=== PATIENT | female | born 1950 | race Caucasian/White ===

== ENCOUNTER 2016-08-15 18:27 | Emergency (ER) | payer OTHER ==
[~2016-08-15] VITALS: Ht 157.5 cm; Wt 67.0 kg
[2016-08-15 18:58] VITALS: Ht 157.5 cm; Wt 67.0 kg
[2016-08-15] MEDS ORDERED: ONDANSETRON 4 MG INJ IV STA (20:58)
[2016-08-15] MEDS ORDERED: morphine 4 MG/ML VIAL IV STA (20:58)
[2016-08-15] MEDS ORDERED: SOD CHLORIDE 0.9% 1,000 ML IV STA (20:58)
[2016-08-15 20:59] LABS: URINE BLOOD (Dip) POC 2+ (NEGATIVE)
[2016-08-15] MEDS ORDERED: SIMV20TA PO (21:14)
[2016-08-15 21:19] LABS: ADD SCAN DIFF NO
[2016-08-15 21:21] LABS: EOSINOPHILS % 0.3 % (0.0-7.0); HEMATOCRIT 41.6 % (37.0-47.0); HEMOGLOBIN 14.4 g/dl (12.0-16.0); LYMPHOCYTES # 1.6 10^3/ul (0.8-2.9); LYMPHOCYTES % 24.8 % (15.0-51.0); MEAN CORPUSCULAR HEMOGLOBIN 30.8 pg (29.0-33.0); MEAN CORPUSCULAR HGB CONC 34.6 g/dl (32.0-37.0); MEAN CORPUSCULAR VOLUME 89.1 fl (82.0-101.0); MEAN PLATELET VOLUME 9.2 fl (7.4-10.4); MONOCYTE # 0.6 10^3/ul (0.3-0.9); MONOCYTES % 9.6 % (0.0-11.0); NEUTROPHIL # 4.2 10^3/ul (1.6-7.5); NEUTROPHILS % 65.1 % (39.0-77.0); PLATELET COUNT 246 10^3/UL (140-415); RED BLOOD COUNT 4.67 10^6/ul (4.20-5.40); RED CELL DISTRIBUTION WIDTH 12.5 % (11.5-14.5); WHITE BLOOD COUNT 6.4 10^3/ul (4.8-10.8)
[2016-08-15 21:48] LABS: ADD UMIC YES; UR BILIRUBIN (Dip) NEGATIVE (NEGATIVE); UR BLOOD (Dip) 2+ (NEGATIVE); UR CLARITY CLEAR (CLEAR); UR COLOR LT. YELLOW (YELLOW); UR GLUCOSE (Dip) NEGATIVE (NEGATIVE); UR KETONES (Dip) NEGATIVE (NEGATIVE); UR LEUKOCYTE ESTERASE (Dip) NEGATIVE (NEGATIVE); UR NITRITE (Dip) NEGATIVE (NEGATIVE); UR TOTAL PROTEIN (Dip) NEGATIVE (NEGATIVE); UR UROBILINOGEN (Dip) 0.2 E.U./dL (0.1-1.0)
[2016-08-15 21:55] LABS: UR SQUAMOUS EPITHELIAL CELL FEW /HPF (FEW); URINE RBCS 0-2 /HPF (0)
[2016-08-15 22:13] LABS: ALANINE AMINOTRANSFERASE 31 IU/L (13-69); ALBUMIN/GLOBULIN RATIO 1.51; ALKALINE PHOSPHATASE 107 IU/L (42-121); ANION GAP 15 (8-16); ASPARTATE AMINO TRANSFERASE 26 IU/L (15-46); BILIRUBIN,INDIRECT 0.4 mg/dl (0-1.1); BILIRUBIN,TOTAL 0.4 mg/dl (0.2-1.3); BLOOD UREA NITROGEN 10 mg/dl (7-20); CALCIUM 9.8 mg/dl (8.4-10.2); CARBON DIOXIDE 25 mmol/L (21-31); CHLORIDE 102 mmol/L (97-110); CREATININE 0.69 mg/dl (0.44-1.00); GLUCOSE 98 mg/dl (70-220); POTASSIUM 3.6 mmol/L (3.5-5.1); SODIUM 138 mmol/L (135-144); TOTAL PROTEIN 8.3 g/dl (6.1-8.1)
--- NOTE | 2016-08-15 22:27 | RADRPT ---
PROCEDURE: Ultrasound of the abdomen. CLINICAL INDICATION: Abdominal pain TECHNIQUE: Sonographic images of the abdomen were performed. COMPARISON: No pertinent prior examinations were submitted for comparison. FINDINGS: Liver: The liver is diffusely increased in echogenicity and mildly enlarged, measuring approximatel y 16.6 cm. The hepatic veins and portal veins are patent with appropriate directional flow. No intra hepatic ductal dilatation is seen. Gallbladder: Not visualized. The common duct measures 4.0 mm. Pancreas: There is limited evaluation of the pancreatic body and tail. The visualized portions of the pancreas are unremarkable. Kidneys: The right kidney measures 11.8 x 4.6 x 6 cm. There is normal corticomedullary differentiat ion. There is no evidence of renal calculus or hydronephrosis. IVC: The visualized portion of the inferior vena cava is unremarkable. Aorta: Normal in size. Free fluid: None. IMPRESSION: Hepatic steatosis. Gallbladder not visualized. RPTAT: HIKT .Go Tanner MD, Date Time Electronically viewed and signed by .Go Tanner MD, on 08/15/2016 22:27 .T/
--- NOTE | 2016-08-15 22:29 | RADRPT ---
PROCEDURE: CT abdomen and pelvis without intravenous contrast. CLINICAL INDICATION: Pain. TECHNIQUE: CT of the abdomen/pelvis was performed utilizing axial images with reconstructions in s agittal and coronal planes. The administered radiation dose is CTDI 11.6 mGy, DLP 634 mGy-cm. COMPARISON: No pertinent prior examinations were submitted for comparison. FINDINGS: Visualized Chest: There is mild to moderate cardiomegaly. Abdomen: The spleen, pancreas, and adrenal glands are unremarkable. Prior cholecystectomy is noted. There is a 17 mm hypoattenuating lesion within the central right hepatic lobe, likely a cyst. The kidneys are without hydronephrosis. No definite urinary calculi are seen. There is no evidence of bowel obstruction. The appendix is normal. No intra-abdominal free air is seen. Numerous diverticula are noted throughout the colon. There is no evidence of intra-abdominal adenopathy or free fluid. Pelvis: There is no evidence of pelvic adenopathy. The uterus and ovaries are without enlargement. The uri nary bladder is unremarkable. There is no pelvic free fluid. There is a small, fat-containing right inguinal hernia. Osseous structures: Unremarkable. IMPRESSION: No acute findings. Probable hepatic cyst. Colonic diverticulosis. Small, fat-containing right inguinal hernia. RPTAT: HIKT .Go Tanner MD, MD Date Time Electronically viewed and signed by .Go Tanner MD, MD on 08/15/2016 22:29 .T/
[2016-08-15] MEDS ORDERED: ONDA4TAB14 PO (22:36)
[2016-08-15] MEDS ORDERED: HYDR-902 PO (22:36)
[2016-08-15 22:40] LABS: TROPONIN-I < 0.012 ng/ml (0.00-0.12)
--- NOTE | 2016-08-15 22:49 | ERD ---
ER Documentation Chief Complaint Date/Time DATE: 08/15/16 TIME: 22:47 Chief Complaint abd pain, n/v/d x 3 days. weakness. denies CP HPI Patient is a 66-year-old female with hypertension who presents with abdominal pain. The patient started with epigastric pain that is now whole abdominal pain. It has been there for 3 days. It is sharp in nature and comes and goes. She is crying and anxious in the emergency department. She has had no treatment as of yet. ROS All systems reviewed and are negative except as per history of present illness. Medications Home Meds Active Scripts Ondansetron (Ondansetron Odt) 4 Mg Tab.rapdis, 4 MG PO Q6H Y for NAUSEA AND/OR VOMITING, #10 TAB Prov:SHAYE CAMACHO MD 08/15/16 Hydrocodone/Acetaminophen ([place] 10-325 Tablet) 1 Each Tablet, 1 TAB PO Q6H Y for PAIN, #7 TAB Prov:SHAYE CAMACHO MD 08/15/16 Reported Medications Simvastatin* (Zocor*) 20 Mg Tablet, 20 MG PO QHS, #30 TAB 08/15/16 Allergies Allergies: Coded Allergies: No Known Allergy (Unverified , 08/15/16) PMhx/Soc Positive for hypertension Hx Alcohol Use: No Hx Substance Use: No Hx Tobacco Use: No Smoking Status: Never smoker FmHx Family History: diabetes Physical Exam Vitals Vital Signs Date Time Temp Pulse Resp B/P Pulse Ox O2 Delivery O2 Flow Rate FiO2 08/15/16 18:58 98.7 114 18 149/71 97 Physical Exam Const: Moderate distress secondary to pain Head: Atraumatic Eyes: Normal Conjunctiva ENT: Normal External Ears, Nose and Mouth. Neck: Full range of motion..~ No meningismus. Resp: Clear to auscultation bilaterally Cardio: Regular rate and rhythm, no murmurs Abd: Diffuse tenderness to palpation without rebound or guarding Skin: No petechiae or rashes Back: No midline or flank tenderness Ext: No cyanosis, or edema Neur: Awake and alert Psych: Normal Mood and Affect Result Diagram: 08/15/16204908/15/162049 Results 24 hrs Laboratory Tests Test 08/15/16 20:40 08/15/16 20:50 08/15/16 21:03 Urine Color LT. YELLOW Urine Clarity CLEAR Urine pH Urine Specific [place] Urine Ketones NEGATIVE Urine Nitrite NEGATIVE Urine Bilirubin NEGATIVE Urine Urobilinogen 0.2 E.U./dL Urine Leukocyte Esterase NEGATIVE Urine Microscopic RBC 0-2/HPF Urine Microscopic WBC 0-2/HPF Urine Squamous Epithelial Cells FEW/HPF Urine Hemoglobin 2+ Urine Glucose NEGATIVE% Urine Total Protein NEGATIVE White Blood Count 6.410^3/ul Red Blood Count 4.6710^6/ul Hemoglobin 14.4g/dl Hematocrit 41.6% Mean Corpuscular Volume 89.1fl Mean Corpuscular Hemoglobin 30.8pg Mean Corpuscular Hemoglobin Concent 34.6g/dl Red Cell Distribution Width 12.5% Platelet Count 49714^3/UL Mean Platelet Volume 9.2fl Neutrophils % 65.1% Lymphocytes % 24.8% Monocytes % 9.6% Eosinophils % 0.3% Basophils % 0.0% Nucleated Red Blood Cells % 0.0/100WBC Neutrophils # 4.210^3/ul Lymphocytes # 1.610^3/ul Monocytes # 0.610^3/ul Eosinophils # 0.010^3/ul Basophils # 0.010^3/ul Nucleated Red Blood Cells # 0.010^3/ul Sodium Level 138mmol/L Potassium Level 3.6mmol/L Chloride Level 102mmol/L Carbon Dioxide Level 25mmol/L Anion Gap 15 Blood Urea Nitrogen 10mg/dl Creatinine 0.69mg/dl Glucose Level 98mg/dl Calcium Level 9.8mg/dl Total Bilirubin 0.4mg/dl Direct Bilirubin 0.00mg/dl Indirect Bilirubin 0.4mg/dl Aspartate Amino Transf (AST/SGOT) 26IU/L Alanine Aminotransferase (ALT/SGPT) 31IU/L Alkaline Phosphatase 107IU/L Troponin I < 0.012ng/ml Total Protein 8.3g/dl Albumin 5.0g/dl Globulin 3.30g/dl Albumin/Globulin Ratio 1.51 Lipase 37U/L Bedside Urine pH (LAB) 5.5 Bedside Urine Protein (LAB) Negative Bedside Urine Glucose (UA) Negative Bedside Urine Ketones (LAB) Negative Bedside Urine Blood 2+ Bedside Urine Nitrite (LAB) Negative Bedside Urine Leukocyte Esterase (L Negative Current Medications Medications (Trade) Dose Ordered Sig/Alejandro Route PRN Reason Start Time Stop Time Status Last Admin Dose Admin Sodium Chloride (NS) 1,000 ml @ 1,000 mls/hr Q1H STAT IV 08/15/16 20:58 08/15/16 21:57 DC 08/15/16 21:06 Morphine Sulfate (morphine) 4 mg ONCE STAT IV 08/15/16 20:58 08/15/16 20:59 DC 08/15/16 21:06 Ondansetron HCl (Zofran Inj) 4 mg ONCE STAT IV 08/15/16 20:58 08/15/16 20:59 DC 08/15/16 21:06 Procedures/MDM CT abdomen pelvis shows no acute process or surgical process per radiology. Ultrasound shows no gallbladder per radiology and the patient thinks she may have had a cholecystectomy in the past. EKG read by me: Rate/Rhythm: Right bundle branch block at a rate of 80 Intervals: Normal Impression: Right bundle branch block without ischemia Patient is a 66-year-old female with hypertension who presents with abdominal pain. She had a full workup including laboratory studies, urinalysis, CT scan, and ultrasound. The patient has basically normal laboratory studies. Her CT scan shows no surgical process such as obstruction or appendicitis. Ultrasound shows no gallbladder. At this point I doubt appendicitis, cholecystitis, pancreatitis, or bowel obstruction. I believe outpatient management is appropriate but the patient will need close follow-up with her primary doctor within 24 hours. She can return sooner for any worsening symptoms. She will be given a prescription for [place] and Colace. Departure Diagnosis: Primary Impression: Abdominal pain Abdominal location: generalized Qualified Code: R10.84 - Generalized abdominal pain Condition: Fair Patient Instructions: Abdominal Pain Referrals: Your primary doctor Additional Instructions: Visite a gage michelle barry para un EXAMEN.Regrese a estas instalaciones si no se mejora carla esperbamos o carla arlyn gonzalez. SHAYE CAMACHO MD Aug 15, 2016 22:49
[2016-08-15 22:52] VITALS: BP 128/62; PULSE 78; RESP 14
== END 2016-08-15 22:53 | disposition home or self-care (01) ==
LOC: E/R 18:27
DX: R10.84 Generalized abdominal pain (principal); R40.2252 Coma scale, best verbal response, oriented, at arrival to emergency department; R11.2 Nausea with vomiting, unspecified; I10 Essential (primary) hypertension; R40.2142 Coma scale, eyes open, spontaneous, at arrival to emergency department; R40.2362 Coma scale, best motor response, obeys commands, at arrival to emergency department
CPT/HCPCS: 36415; 74176; 76705; 80053; 81001; 83690; 84484; 85025; 93005; 96374; 96375; 99285; J2270; J2405; J7030; 81003

== ENCOUNTER 2018-02-03 10:07 | Emergency (ER) | END 2018-02-03 15:55 | disposition home or self-care (01) ==